=== PATIENT | male | born 1980 | race American Indian/Alaskan Native ===

== ENCOUNTER 2017-02-08 09:19 | Emergency (ER) | payer OTHER ==
[2017-02-08 09:35] VITALS: BP 125/77
[2017-02-08] MEDS ORDERED: FLEXERIL PO ONE (12:46)
[2017-02-08] MEDS ORDERED: MOTRIN PO ONE (12:46)
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
== END 2017-02-08 13:21 | disposition home or self-care (01) ==
LOC: ED 09:19
DX: S13.4XXA Sprain of ligaments of cervical spine, initial encounter (principal); V49.49XA Driver injured in collision with other motor vehicles in traffic accident, initial encounter; Y92.410 Unspecified street and highway as the place of occurrence of the external cause; Y93.89 Activity, other specified; Y99.8 Other external cause status
CPT/HCPCS: 99282